=== PATIENT | female | born 1965 | race Caucasian/White ===

== ENCOUNTER 2018-11-23 14:11 | Emergency (ER) | payer OTHER ==
[~2018-11-23] VITALS: Ht 152.4 cm; Wt 79.0 kg
[2018-11-23] MEDS ORDERED: TORADOL PO (15:30)
[2018-11-23] MEDS ORDERED: [UNRECOGNIZED DRUG - REMARK] (15:38)
[2018-11-23 15:55] VITALS: BP 133/83
== END 2018-11-23 15:55 | disposition home or self-care (01) | DRG 563 ==
LOC: ED 14:11
DX: S63.501A Unspecified sprain of right wrist, initial encounter (principal); I10 Essential (primary) hypertension; W01.0XXA Fall on same level from slipping, tripping and stumbling without subsequent striking against object, initial encounter; Y92.410 Unspecified street and highway as the place of occurrence of the external cause